=== PATIENT | female | born 1945 | race Caucasian/White ===

== ENCOUNTER 2018-01-02 21:31 | Observation (INO) ==
[~2018-01-02 21:31] MED LIST: Gadobenate Dimeglumine PF Inj 20 ML VIAL (for RAD MRI) IV.PUSH ONE
[2018-01-02] MEDS ORDERED: Sod Chloride 0.9% Inj 1,000 ML IV.CONT SCH (22:15)
[2018-01-02 22:43] LABS: Chloride 102 meq/L (98-107); Potassium 4.7 meq/L (3.5-5.1); Sodium 136 meq/L (136-145)
[2018-01-02 22:46] LABS: Baso % (Auto) 0.6 % (0.0-2.0); Eos # (Auto) 0.3 th/mm3 (0.0-0.4); Hematocrit 31.7 % (35.0-46.0); Lymph # (Auto) 1.5 th/mm3 (1.0-4.8); Lymph % (Auto) 21.4 % (9.0-44.0); Mean Corpuscular HGB Conc 34.6 % (32.0-36.0); Mean Corpuscular Hemoglobin 32.2 pg (27.0-34.0); Mean Corpuscular Volume 93.1 fL (80.0-100.0); Mono # (Auto) 0.5 th/mm3 (0.0-0.9); Mono % (Auto) 7.3 % (0.0-8.0); Neut # (Auto) 4.8 th/mm3 (1.8-7.7); Neut % (Auto) 66.7 % (16.0-70.0); Platelet Count 192 th/mm3 (150-450); Red Blood Count 3.41 mil/mm3 (4.00-5.30); Red Cell Distribution Width 13.3 % (11.6-17.2); White Blood Count 7.1 th/mm3 (4.0-11.0)
[2018-01-02 22:47] LABS: Activated Partial Thrombo Time 23.2 sec (24.3-30.1); Albumin 3.5 g/dL (3.4-5.0); Anion Gap 11 meq/L (5-15); Blood Urea Nitrogen 29 mg/dL (7-18); Calcium 8.4 mg/dL (8.5-10.1); Carbon Dioxide 22.8 meq/L (21.0-32.0); Glucose,Random 185 mg/dL (74-106); Prothrombin Time 10.1 sec (9.8-11.6)
[2018-01-02 22:50] LABS: Alanine Aminotransferase 26 U/L (10-53); Aspartate Aminotransferase 29 U/L (15-37); Glomerular Filtration Rate 32 mL/min (>89)
[2018-01-02 22:52] LABS: Total Protein 6.6 g/dL (6.4-8.2)
[2018-01-02 22:53] LABS: Alkaline Phosphatase 104 U/L (45-117); Creatine Kinase 446 U/L (26-192)
--- NOTE | 2018-01-02 22:58 | ED ---
HPI General Chief Complaint: Neuro Symptoms/Deficit Stated Complaint: KNEE PAIN/WEAKNESS/DOUBLE VISION [id number] Time Seen by Provider: 01/02/18 22:01 Source: patient Mode of arrival: ambulatory Limitations: no limitations History of Present Illness HPI Narrative: The patient is a 72-year-old female who presents to the emergency department for dysarthria and weakness. The patient states she developed bilateral lower extremity weakness several weeks ago in [place], [place] , where she resides. The patient has a history of bilateral knee replacements and states she needed an injection for aching and pain. However, she notes increasing weakness lower extremities. The patient then notes that she has some difficulty getting out of the car yesterday with some right lower extremity weakness and had to have help getting out of the car at the restaurant as well as getting out of the car at the hotel. The patient then developed some dysarthria today at approximately 10 AM while they were at the restaurant. The patient states her speech feels thick, the friends in the room also states that the patient's voice sounds like she has loose dentures, they do note a change in her speech. The patient also complains of some increased weakness to the right leg. The patient also complains of bilateral blurry vision. The patient does have a history of TIA in the past with similar symptoms. The patient does take an aspirin daily and took a full aspirin earlier tonight. The patient denies any chest pain, shortness of breath, nausea , vomiting, or abdominal pain. The patient does take a blood pressure medication to protect her kidneys and does have a history of hyperlipidemia, diabetes, and previous TIA. The patient does take metformin and a long-acting insulin with sliding scale insulin. The patient does not have a local primary physician. The patient's symptoms started this morning at 10 AM. Onset (ago): hour(s) Time: 10:00 Timing confirmed by: other (Friends in the room) Location: speech and right leg History of same: Yes Severity: mild Quality: weak Relieving factors: none Exacerbating factors: none Context: gradual onset On Anticoagulants: Yes Associated symptoms: denies other symptoms Treatments Prior to Arrival: Aspirin Related Data Home Medications Medication Instructions Recorded Confirmed aspirin 81 mg PO DAILY 01/02/18 01/02/18 metformin 1,000 mg PO BID 01/02/18 01/02/18 Allergies Allergy/AdvReac Type Severity Reaction Status Date / Time morphine Allergy Itching, Verified 01/02/18 21:35 Generalized Review of Systems Except as stated in HPI: all other systems reviewed are negative Constitutional Denies fever(s) Eyes Reports blurry vision ENT Denies headache(s) and Denies neck pain Cardiovascular Denies chest pain and Denies pedal edema Respiratory Denies dyspnea Gastrointestinal Denies abdominal pain, Denies nausea and Denies vomiting Genitourinary Denies dysuria Musculoskeletal Reports myalgias and Reports muscle weakness Neurologic Reports abnormal speech, Reports dizziness, Reports frequent falls, Denies numbness, Reports other visual disturbances, Denies paresthesias and Reports weakness [facility] Medical History Medical History Diabetes mellitus (Acute) High cholesterol (Acute) Kidney damage (Acute) TIA (transient ischemic attack) (Acute) Surgical History Surgical History H/O knee surgery (Acute) Previous back surgery (Acute) Social History Social History Substance History: No History of Abuse Smoking Status: Never smoker How Often Do You Have a Drink Containing Alcohol: Monthly or less Recent Travel in [facility] within the Last 8 Weeks: Yes Recent Out of Country Travel within the Last 8 Weeks: No Immunization History Tetanus Immunization: Unsure Hx Influenza Vaccine This Season: Unable to Assess Exam Narrative Exam Narrative: GENERAL: Awake, alert, pleasant 72-year-old female who appears her stated age and is in no acute respiratory distress. SKIN: Focused skin assessment warm/dry. HEAD: Atraumatic. Normocephalic. EYES: Pupils equal and round. 3 mm bilateral and reactive. EOMs are intact. Patient is able to see fingers at a distance of 2 feet without difficulty. ENT: No nasal bleeding or discharge. Mucous membranes pink and moist. NECK: Trachea midline. No JVD. CARDIOVASCULAR: Regular rate and rhythm. No murmur appreciated. RESPIRATORY: No accessory muscle use. Clear to auscultation. Breath sounds equal bilaterally. GASTROINTESTINAL: Abdomen soft, non-tender, nondistended. Small areas of ecchymosis on the abdomen secondary to insulin injections. MUSCULOSKELETAL: No obvious deformities. No clubbing. No cyanosis. No edema. Well-healed scars over the anterior aspect of the knees bilaterally. NEUROLOGICAL: Awake and alert. No obvious cranial nerve deficits. Motor grossly within normal limits. No drift of the upper extremities. Drift to the right lower extremity, falls to the bed less than 5 seconds. No drift of the left lower extremity. Sensation is symmetric on the face, arms, and legs. Finger to nose is normal. Heel to white is normal. Mild dysarthria. Patient is alert and oriented 4. NIHSS 2. PSYCHIATRIC: Appropriate mood and affect; insight and judgment normal. Course Consultations Consultation #1: A call was placed to the on-call medical service for admission. I spoke with Sparkle, the mid-level provider, at 11:45 PM who agrees with 23 hour observation. Time: 23:36 Initial Documented Vital Signs Temperature 97.7 F 01/02/18 21:35 Pulse Rate 84 01/02/18 21:35 Respiratory Rate 18 01/02/18 21:35 Blood Pressure 109/51 L 01/02/18 21:35 Pulse Oximetry 95 01/02/18 21:35 Last Documented Vital Signs Temperature 97.7 F 01/02/18 21:35 Pulse Rate 92 H 01/02/18 22:42 Respiratory Rate 18 01/02/18 22:42 Blood Pressure 99/53 L 01/02/18 22:42 Pulse Oximetry 95 01/02/18 22:42 NIH Stroke Scale NIH Stroke Scale Level of Consciousness: 0-Alert Orientation Questions: 0-Answers both correct Responds to Commands: 0-Both tasks correct Gaze Eye Movement: 0-Horizontal movement WNL Visual [place]: 0-No visual field defect Facial Movement: 0-Normal Motor Functions Arm LEFT: 0-No drift Motor Functions Arm RIGHT: 0-No drift Motor Functions Leg LEFT: 0-No drift Motor Functions Leg RIGHT: 1-Drift before 5 seconds Limb Ataxia: 0-No ataxia Sensory Loss: 0-No sensory loss Best Language: 0-Normal Articulation: 1-Mild dysarthia Extinction or Inattention Sensory: 0-Absent Total: 2 Medical Decision Making MDM Narrative Medical decision making narrative: IV was established, labs are drawn and sent, and the patient was placed on cardiac telemetry monitoring and continuous pulse oximetry monitoring. Stat CT the brain was obtained. The patient's NIHSS score is 2, the patient's symptoms started at 10 AM, the patient would not be a candidate for TPA. The stroke scale is less than 6, I do not believe the patient needs a CTA of the brain/neck. The patient does have a history of similar symptoms in the past secondary to TIA and does have multiple risk factors. CT the brain is negative, the patient was administered aspirin. Chest x-ray is unremarkable. Laboratory evaluation reveals mild renal insufficiency with a creatinine 1.6 a mild hyperglycemia with a glucose of 185. The patient will be admitted to the medical service. Differential Diagnosis Differential Diagnosis: Differential diagnosis includes TIA, CVA, intracranial hemorrhage, hypertensive urgency, hypertensive emergency, hypoglycemia, acute neurologic deficit, UTI, hyponatremia. Lab Data Lab results narrative: Renal insufficiency noted with creatinine 1.6. Glucose slightly elevated at 185. Result diagrams: 01/02/18 22:28 01/02/18 22:28 Lab Results 01/02/18 01/02/18 01/02/18 Range/Units 22:23 22:28 22:28 CBC w Diff WBC (4.0-11.0) th/mm3 RBC (4.00-5.30) mil/mm3 Hgb (11.6-15.3) gm/dL Hct (35.0-46.0) % MCV (80.0-100.0) fL MCH (27.0-34.0) pg MCHC (32.0-36.0) % RDW (11.6-17.2) % Plt Count (150-450) th/mm3 MPV (7.0-11.0) fL Neut % (Auto) (16.0-70.0) % Lymph % (Auto) (9.0-44.0) % [place] % (Auto) (0.0-8.0) % Eos % (Auto) (0.0-4.0) % Baso % (Auto) (0.0-2.0) % Neut # (Auto) (1.8-7.7) th/mm3 Lymph # (Auto) (1.0-4.8) th/mm3 [place] # (Auto) (0.0-0.9) th/mm3 Eos # (Auto) (0.0-0.4) th/mm3 Baso # (Auto) (0.0-0.2) th/mm3 WBC Differential Differential Comment PT 10.1 (9.8-11.6) sec INR 1.0 Ratio APTT 23.2 L (24.3-30.1) sec Sodium 136 (136-145) meq/L Potassium 4.7 (3.5-5.1) meq/L Chloride 102 (98-107) meq/L Carbon Dioxide 22.8 (21.0-32.0) meq/L Anion Gap 11 (5-15) meq/L BUN 29 H (7-18) mg/dL Creatinine 1.60 H (0.50-1.00) mg/dL Estimated GFR 32 L (>89) mL/min POC Glucose 205 H (68-110) mg/dl Random Glucose 185 H (74-106) mg/dL Calcium 8.4 L (8.5-10.1) mg/dL Total Bilirubin 0.2 (0.2-1.0) mg/dL AST 29 (15-37) U/L ALT 26 (10-53) U/L Alkaline Phosphatase 104 (45-117) U/L Total Creatine Kinase 446 H (26-192) U/L CK-MB (CK-2) 2.2 (0.5-3.6) ng/mL CK-MB (CK-2) % 0.5 (0.0-4.0) % Troponin I Less than 0.02 L (0.02-0.05) ng/mL Total Protein 6.6 (6.4-8.2) g/dL Albumin 3.5 (3.4-5.0) g/dL 01/02/18 Range/Units 22:28 CBC w Diff Auto diff final WBC 7.1 (4.0-11.0) th/mm3 RBC 3.41 L (4.00-5.30) mil/mm3 Hgb 11.0 L (11.6-15.3) gm/dL Hct 31.7 L (35.0-46.0) % MCV 93.1 (80.0-100.0) fL MCH 32.2 (27.0-34.0) pg MCHC 34.6 (32.0-36.0) % RDW 13.3 (11.6-17.2) % Plt Count 192 (150-450) th/mm3 MPV 11.0 (7.0-11.0) fL Neut % (Auto) 66.7 (16.0-70.0) % Lymph % (Auto) 21.4 (9.0-44.0) % [place] % (Auto) 7.3 (0.0-8.0) % Eos % (Auto) 4.0 (0.0-4.0) % Baso % (Auto) 0.6 (0.0-2.0) % Neut # (Auto) 4.8 (1.8-7.7) th/mm3 Lymph # (Auto) 1.5 (1.0-4.8) th/mm3 [place] # (Auto) 0.5 (0.0-0.9) th/mm3 Eos # (Auto) 0.3 (0.0-0.4) th/mm3 Baso # (Auto) 0.0 (0.0-0.2) th/mm3 WBC Differential . Differential Comment . PT (9.8-11.6) sec INR Ratio APTT (24.3-30.1) sec Sodium (136-145) meq/L Potassium (3.5-5.1) meq/L Chloride (98-107) meq/L Carbon Dioxide (21.0-32.0) meq/L Anion Gap (5-15) meq/L BUN (7-18) mg/dL Creatinine (0.50-1.00) mg/dL Estimated GFR (>89) mL/min POC Glucose (68-110) mg/dl Random Glucose (74-106) mg/dL Calcium (8.5-10.1) mg/dL Total Bilirubin (0.2-1.0) mg/dL AST (15-37) U/L ALT (10-53) U/L Alkaline Phosphatase (45-117) U/L Total Creatine Kinase (26-192) U/L CK-MB (CK-2) (0.5-3.6) ng/mL CK-MB (CK-2) % (0.0-4.0) % Troponin I (0.02-0.05) ng/mL Total Protein (6.4-8.2) g/dL Albumin (3.4-5.0) g/dL Imaging Data Radiologist's impression: ITS Impressions Chest X-Ray 01/02/18 22:15 CONCLUSION: 1. No acute cardiopulmonary disease. Head CT 01/02/18 22:15 CONCLUSION: 1. No acute intracranial abnormality. ECG Data Attestation: I personally reviewed and interpreted this ECG as follows: Interpretation: EKG reveals normal sinus rhythm with a rate of 91. Wavy baseline in V5. Inverted T-wave in lead III. Discharge Plan Discharge Disposition Patient Disposition: 30 Still Patient Discharge Condition Condition: Stable Discharge Details Discharge Problem: Dysarthria, Cerebrovascular accident (CVA) Physicians Team ED Provider: Sony Iverson Primary Care Provider: UNKNOWN, Rxs /Orders / Referrals /Forms Prescriptions: No Action metformin 1,000 mg Tablet 1,000 mg PO BID RF: 0 aspirin 81 mg Tablet,Chewable 81 mg PO DAILY RF: 0 Status ED Status: Admitted Patient
[2018-01-02 23:05] LABS: CKMB Percent 0.5 % (0.0-4.0); Creatine Kinase MB 2.2 ng/mL (0.5-3.6)
--- NOTE | 2018-01-02 23:19 | CT ---
EXAM DATE: 01/02/2018 11:10 PM EDT AGE/SEX: 72 years / Female INDICATIONS: Transient ischemic attack. Weakness right arm. CLINICAL DATA: This is the patient's initial encounter. Patient reports that signs and symptoms have been present for 1 day and indicates a pain score of 4/10. MEDICAL/SURGICAL HISTORY: Cerebrovascular disease. None. RADIATION DOSE: 52.73 CTDI (mGy) COMPARISON: No prior exams available for comparison. TECHNIQUE: CT of the head without contrast. Using automated exposure control and adjustment of the mA and/or kV according to patient size, radiation dose was kept as low as reasonably achievable to ob tain optimal diagnostic quality images. DICOM format image data is available electronically for revi ew and comparison. FINDINGS: Cerebrum: Mild diffuse cerebral atrophy. The ventricles are normal for age. No evidence of midline s hift, mass lesion, hemorrhage or acute infarction. No extraaxial fluid collections are seen. Posterior Fossa: The cerebellum and brainstem are intact. The 4th ventricle is midline. The cerebe llopontine angle is unremarkable. Extracranial: The visualized portion of the orbits is intact. Skull: The calvaria is intact. No evidence of skull fracture. CONCLUSION: 1. No acute intracranial abnormality. Electronically signed by: Camron Cavanaugh MD 01/02/2018 11:18 PM EDT
--- NOTE | 2018-01-02 23:31 | XR ---
EXAM DATE: 01/02/2018 11:27 PM EDT AGE/SEX: 72 years / Female INDICATIONS: Stroke alert. CLINICAL DATA: This is the patient's initial encounter. Patient reports that signs and symptoms have been present for 1 day and indicates a pain score of 0/10. MEDICAL/SURGICAL HISTORY: None. None. COMPARISON: No prior exams available for comparison. FINDINGS: Minimal biapical scarring more prominently on the right. No significant focal pleural or parenchymal opacities. The cardiomediastinal contours are unremarkable. Osseous structures are intact. CONCLUSION: 1. No acute cardiopulmonary disease. Electronically signed by: Camron Cavanaugh MD 01/02/2018 11:30 PM EDT
[2018-01-03 01:24] LABS: Bilirubin,Urine Negative (Negative); Clarity,Urine Clear (Clear); Color,Urine Yellow (Yellw/Straw); Glucose,Urine (UA) Negative (Negative); Leukocyte Esterase,Urine Trace (Negative); Nitrite,Urine Positive (Negative); PH,Urine 5.5 (5.0-8.5); Specific Gravity,Urine 1.015 (1.002-1.035); Urobilinogen,Urine 0.2 mg/dL (Less than 2)
[2018-01-03 01:29] LABS: Bacteria,Urine Many /hpf; RBC,Urine 0-3 /hpf (0-3); Squamous Epithelial Cell,Urine 0-5 /hpf (0-5)
[2018-01-03] MEDS ORDERED: Dextrose 50% in Water 50 ML Vial IV.PUSH PRN ×2 (02:22→02:32)
[2018-01-03] MEDS: Sod Chloride 0.9% Inj 1,000 ML IV.CONT SCH ×2 (04:16→10:42)
--- NOTE | 2018-01-03 08:39 | P.HPIM ---
History of Present Illness Primary Care Physician: UNKNOWN Chief Complaint: leg weakness History of Present Illness: patient is a 72 y/o female with history of hypertension, diabetes, TIA, newly- diagnosed breast cancer, who presented to ER with weakness of both legs. she says that this has been going on for three days but it seems that it's been getting worse.she says that yesterday when she was trying to get out of the car she couldn't and had to get some help. she reports slurred speech and double vision for the past couple of days. - Diagnosis (1) TIA (transient ischemic attack) (2) UTI (urinary tract infection) (3) Diabetes mellitus (4) Renal insufficiency Inpatient Certification: I certify that the inpatient services were ordered in accordance with Medicare regulations governing the order. This includes certification that hospital inpatient services are reasonable and necessary and in the case of services not specified as inpatient-only under 42 CFR 419.22(n), that they are appropriately provided as inpatient services in accordance to with the 2-midnight benchmark under 43 CFR 412.3(e) Review of Systems All other systems reviewed negative except as stated in HPI PMFSH - History History Provided By: Patient - Medical History Medical History: Medical History (Last Reviewed 01/03/18 @ 08:26 by Tremayne Forte) Diabetes mellitus High cholesterol Kidney damage TIA (transient ischemic attack) - Surgical History Surgical History: Surgical History (Last Reviewed 01/03/18 @ 08:26 by Tremayne Forte) H/O knee surgery Previous back surgery - Tobacco History Second Hand Smoke Exposure: Yes Tobacco Use In Past 30 Days: No Smoking Status: Never smoker - Alcohol History How Often Do You Have a Drink Containing Alcohol: Monthly or less - Substance Use History Substance History: No History of Abuse - Travel History Recent Travel in the [place] Within the Last 8 Weeks: Yes Recent Travel Out of the Country Within the Last 8 Weeks: No - Immunization History Tetanus Immunization: Unsure Hx Influenza Vaccine This Season: Unable to Assess Medications and Allergies Active Medications: Active Medications Aspirin (Aspirin) 325 mg PO DAILY JESSICA Dextrose (D50w Vial) 50 ml IV.PUSH UNSCH PRN PRN Reason: PER HYPOGLYCEMIA PROTOCOL Dextrose (D50w Vial) 50 ml IV.PUSH UNSCH PRN PRN Reason: PER HYPOGLYCEMIA PROTOCOL Glucagon (Glucagon Inj) 1 mg OTHER UNSCH PRN PRN Reason: for Hypoglycemia Protocol Ceftriaxone Sodium 1,000 mg/ (Sodium Chloride) 100 mls @ 200 mls/hr IV.SIG Q24H [facility] Last Admin: 01/03/18 04:30 Dose: 200 mls/hr Sodium Chloride (Ns Inj) 1,000 mls @ 70 mls/hr IV.CONT .[id number] [facility] Last Admin: 01/03/18 04:16 Dose: Not Given Insulin Aspart (Novolog Insulin Suppl Scale Inj) 0 unit SQ ACHS JESSICA; Protocol Sodium Chloride (Ns Flush) 2 ml IV.FLUSH BID JESSICA Sodium Chloride (Ns Flush) 2 ml IV.FLUSH PRN PRN PRN Reason: FLUSH AFTER USING IV ACCESS Allergies Allergy/AdvReac Type Severity Reaction Status Date / Time morphine Allergy Itching, Verified 01/02/18 21:35 Generalized Home Medications Medication Instructions Recorded Confirmed Type aspirin 81 mg PO DAILY 01/02/18 01/02/18 History metformin 1,000 mg PO BID 01/02/18 01/02/18 History Exam Vital signs: Vital Signs 01/02/18 21:35 01/02/18 22:31 01/02/18 22:42 Temperature 97.7 F Pulse Rate 84 92 H 92 H Respiratory Rate 18 18 Blood Pressure 109/51 L 99/53 L Pulse Oximetry 95 95 95 01/02/18 23:45 01/03/18 01:10 01/03/18 03:00 Temperature Pulse Rate 75 76 71 Respiratory Rate 16 16 16 Blood Pressure 103/60 116/59 L 112/60 Pulse Oximetry 96 01/03/18 07:03 Temperature 98.2 F Pulse Rate 72 Respiratory Rate 16 Blood Pressure 100/55 L Pulse Oximetry 94 L Intake & Output 01/02/18 01/03/18 01/03/18 18:59 06:59 18:59 Weight 94 kg - Constitutional no acute distress - Routine HEENT Exam Head: Present: normocephalic, atraumatic Eye: Present: PERRL - Routine Neck Exam Present: supple, full ROM - Routine Respiratory Exam Present: CTA bilaterally - Routine Cardiovascular Exam Present: RRR - Routine Abdominal Exam Present: soft - Routine Extremities Exam Comments: no pedal edema. - Routine Neurological Exam Present: alert, oriented X3 Results - Labs CBC & Chem 7: 01/02/18 22:28 01/02/18 22:28 Labs: Short CBC 01/02/18 Range/Units 22:28 WBC 7.1 (4.0-11.0) th/mm3 Hgb 11.0 L (11.6-15.3) gm/dL Hct 31.7 L (35.0-46.0) % Plt Count 192 (150-450) th/mm3 BMP 01/02/18 22:28 Sodium 136 Potassium 4.7 Chloride 102 Carbon Dioxide 22.8 BUN 29 H Creatinine 1.60 H Calcium 8.4 L Cardiac Enzymes 01/02/18 Range/Units 22:28 Total Creatine Kinase 446 H (26-192) U/L CK-MB (CK-2) 2.2 (0.5-3.6) ng/mL Troponin I Less than 0.02 L (0.02-0.05) ng/mL Liver Function 01/02/18 Range/Units 22:28 Total Bilirubin 0.2 (0.2-1.0) mg/dL AST 29 (15-37) U/L ALT 26 (10-53) U/L Alkaline Phosphatase 104 (45-117) U/L Albumin 3.5 (3.4-5.0) g/dL Urine 01/02/18 Range/Units 22:15 Urine Color Yellow (Yellw/Straw) Urine Clarity Clear (Clear) Urine pH 5.5 (5.0-8.5) Ur Specific [place] 1.015 (1.002-1.035) Urine Protein Negative (Neg-Trace) mg/dL Urine Glucose (UA) Negative (Negative) mg/dL - Imaging Impressions Chest X-Ray 01/02/18 22:15 CONCLUSION: 1. No acute cardiopulmonary disease. Head CT 01/02/18 22:15 CONCLUSION: 1. No acute intracranial abnormality. Caprini VTE Risk Assessment Caprini VTE Risk Assessment: Moderate/High Risk (score >= 2) Caprini Risk Assessment Model: Point Value = 1 Point Value = 2 Point Value = 3 Point Value = 5 Age 41-60 Minor surgery BMI > 25 kg/m2 Swollen legs Varicose veins or History of unexplained or recurrent spontaneous Oral contraceptives or hormone replacement Sepsis (< 1 month) Serious lung disease, including pneumonia (< 1 month) Abnormal pulmonary function Acute myocardial infarction Congestive heart failure (< 1 month) History of inflammatory bowel disease Medical patient at bed rest Age 61-74 Arthroscopic surgery Major open surgery (> 45 min) Laparoscopic surgery (> 45 min) Malignancy Confined to bed (> 72 hours) Immobilizing plaster cast Central venous access Age >= 75 History of VTE Family history of VTE Factor V Leiden Prothrombin [id number] Lupus anticoagulant Anticardiolipin antibodies Elevated serum homocysteine Heparin-induced thrombocytopenia Other congenital or acquired thrombophilia Stroke (< 1 month) Elective arthroplasty Hip, pelvis, or leg fracture Acute spinal cord injury (< 1 month) Prophylaxis Regimen: Total Risk Factor Score Risk Level Prophylaxis Regimen 0-1 Low Early ambulation 2 Moderate Order ONE of the following: *Sequential Compression Device (SCD) *Heparin 5000 units SQ BID 3-4 Higher Order ONE of the following medications: *Heparin 5000 units SQ TID *Enoxaparin/Lovenox 40 mg SQ daily (WT < 150 kg, CrCl > 30 mL/min) *Enoxaparin/Lovenox 30 mg SQ daily (WT < 150 kg, CrCl > 10-29 mL/min) *Enoxaparin/Lovenox 30 mg SQ BID (WT < 150 kg, CrCl > 30 mL/min) AND/OR *Sequential Compression Device (SCD) 5 or more Highest Order ONE of the following medications: *Heparin 5000 units SQ TID (Preferred with Epidurals) *Enoxaparin/Lovenox 40 mg SQ daily (WT < 150 kg, CrCl > 30 mL/min) *Enoxaparin/Lovenox 30 mg SQ daily (WT < 150 kg, CrCl > 10-29 mL/min) *Enoxaparin/Lovenox 30 mg SQ BID (WT < 150 kg, CrCl > 30 mL/min) AND *Sequential Compression Device (SCD) Assessment and Plan - Assessment (1) TIA (transient ischemic attack) Code(s): G45.9 - Transient cerebral ischemic attack, unspecified Status: Acute Plan: TIA vs CVA- continue aspirin- PT/ST and neurology consult. MRI/MRA brain and carotid doppler pending- will check echo and lipid panel. (2) UTI (urinary tract infection) Code(s): N39.0 - Urinary tract infection, site not specified Status: Acute Plan: continue IV Rocephin- will follow the UC. (3) Diabetes mellitus Code(s): E11.9 - Type 2 diabetes mellitus without complications Status: Chronic Plan: continue accu-check with SSI- A1c pending. (4) Renal insufficiency Code(s): N28.9 - Disorder of kidney and ureter, unspecified Status: Acute Plan: with unknown duration- continue with IV fluid and monitor the renal function. - Plan DVT prophylaxis with subq Lovenox. Discussed Condition With: the patient. Discharge Planning: when w/u is completed- awaiting neurology evaluation. H&P: Quality - VTE Deep Vein Thrombosis/Pulmonary Embolism Present on Admission: No (3) Diabetes mellitus Qualifiers: Diabetes mellitus type: type 2
[2018-01-03] MEDS: Aspirin 325 MG Tablet PO SCH (08:59)
[2018-01-03] MEDS: Insulin NovoLOG Aspart Correctional Sugar Inj SQ SCH ×4 (08:59→21:49)
[2018-01-03] MEDS: Enoxaparin Inj 30 MG/0.3 ML Syringe SQ SCH (08:59)
--- NOTE | 2018-01-03 10:04 | US ---
EXAM DATE: 01/03/2018 8:58 AM EDT AGE/SEX: 72 years / Female INDICATIONS: Weakness. Blurred vision. Speech changes. History of TIA. CLINICAL DATA: This is the patient's initial encounter. Patient reports that signs and symptoms have been present for 1 day and indicates a pain score of 0/10. MEDICAL/SURGICAL HISTORY: Transient ischemic attack. Diabetes. Kidney damage. Hyperlipidemia. . Bilateral knee replacements. Back surgery. COMPARISON: No prior exams available for comparison. VELOCITY PARAMETERS: ICA/CCA Ratio: Right 1.2 , Left 1.3 ICA: Right 106 cm/sec, Left 83 cm/sec CCA: Right 89 cm/sec, Left 65 cm/sec ECA: Right 122 cm/sec, Left 89 cm/sec Vertebral: Right 62 cm/sec antegrade, Left 29 cm/sec antegrade FINDINGS: Right Carotid: Very minimal plaquing in the carotid bulb.The waveforms are within normal limits. Left Carotid: Very minimal plaquing in the carotid bulb. The waveforms are within normal limits. Other: None. CONCLUSION: 1. Right Internal Carotid Artery: Minimal plaquing in the carotid bulb with no sonographic or Dopple r findings of a hemodynamically significant stenosis. 2. Left Internal Carotid Artery: Minimal plaquing in the carotid bulb with no sonographic or Doppler findings of a hemodynamically significant stenosis. 3. Antegrade flow in both vertebral arteries. Electronically signed by: Mitch Ring MD 01/03/2018 10:02 AM EDT
--- NOTE | 2018-01-03 14:57 | MB ---
cc: Adelso Funk MD DATE: 01/03/2018 HISTORY OF PRESENT ILLNESS: A 72-year-old right-handed woman with insulin-dependent diabetes, hypercholesterolemia, some renal insufficiency, new diagnosis of breast cancer. She does take a baby aspirin a day. About 7 years ago, she said that she had some balance problems, some dizziness that seemed to go away and then a year later it recurred. About a month ago, she sat up quickly at the side of her bed in the morning and had some spinning, but it was brief. If she turns over in bed, she does not get particularly dizzy, but if she leans over and then stands up, she does. She was in a restaurant yesterday and it seemed like her right arm could not get the fork up to her mouth and she had some slurred speech and double vision and came into the ER. The ER notes shows that she lives in [place], [place], had some bilateral lower extremity weakness for several weeks. Bilateral knee replacements, some injections for pain especially the right thigh has been hurting her. They noted some dysarthria at 10 a.m., on leaving the restaurant. Speech was a little thick. Increased pain in the right leg, although has had weakness, denied any increased weakness there. Really her exam was normal to near-normal in the ER, and her was 2 at that time. REVIEW OF SYSTEMS: Denies any hypertension, VA, stent, angioplasty, AFib, Coumadin, CABG, hepatic, pulmonary disease, thyroid disease, lupus, ulcer, known seizure. SOCIAL HISTORY: She is not a smoker or drinker, lives by herself. FAMILY HISTORY: Negative for cancer, seizure or stroke. HOME MEDICATIONS: Aspirin 81 mg a day and metformin. PHYSICAL EXAMINATION: VITAL SIGNS: Afebrile, 127/58, 17, 72. NECK: There were no carotid or vertebral bruits. HEART: Regular rhythm. I did not detect a murmur. NEUROLOGIC: Pupils are equal. Visual bowen are full. Extraocular movements intact without nystagmus. Face is symmetric with normal sensation. Tongue was midline. There is no drift. She had normal strength in upper and lower extremities bilaterally. DTRs absent throughout. Toes are downgoing bilaterally. Light touch was intact throughout. She has no ataxic on [id number]. No double vision now. LABORATORY DATA: UA showed 5-8 white cells, occasional clumps. Culture pending. Basic metabolic profile: Creatinine 1.6, GFR is 32, otherwise normal. LFTs are normal. CPK is 446. Troponin was negative. Albumin is normal. Glucose was 205. Coags normal. CBC normal. EKG showed sinus rhythm. IMAGING STUDIES: Labs carotid ultrasound was negative. CAT scan normal. 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 No acute infarct is noted. Mastoids look good. MRA lime of Ortega is pending. Official reading of the MRI is pending. IMPRESSION AND RECOMMENDATIONS: I thought she looked well neurologically. Her gait is actually fairly steady and she can stand on her toes well. She might have a peripheral vestibulopathy from her recent symptoms of dizziness. Certainly if her right arm was weak I would be concerned about that, however, and I would switch her to Plavix. We will check an MRA of the neck, some additional blood work and I will be following her with you in the hospital. We will also check an echo, give her some hydration. I will be following her with you in the hospital. She should also get a Holter monitor done. If her echo is negative and the Holter has been performed and her MRA of the neck and lime of Ortega look okay, she could be discharged tomorrow. We should check an LDL on her also and the results of the urine culture. This may have been a TIA in addition to some baseline peripheral vestibulopathy. We will have PT ambulate her. We will also check an MRI of the brain with contrast with the recent history of cancer. We will also have PT work with her and check some standing blood pressures MD GENARO Person/KVNG , 02:21 PM , 02:56 PM
[2018-01-03] MEDS ORDERED: Gadobenate Dimeglumine PF Inj 20 ML VIAL (for RAD MRI) IV.PUSH ONE (16:00)
--- NOTE | 2018-01-03 16:37 | MR ---
EXAM DATE: 01/03/2018 4:19 PM EDT AGE/SEX: 72 years / Female INDICATIONS: Stroke. CLINICAL DATA: This is the patient's initial encounter. Patient reports that signs and symptoms have been present for 1 day and indicates a pain score of 2/10. MEDICAL/SURGICAL HISTORY: Diabetes mellitus type II. Renal insufficiency, chronic. Diagnosed w ith breast ca last week. Fusion, lumbar. Total knee replacement, left. Total knee replacement, rig ht. COMPARISON: No prior exams available for comparison. TECHNIQUE: 20 ml Multihance (gadobenate) contrast infused MRA (single exam dose) of the extracrania l circulation was performed using a neurovascular coil. Postprocessing was performed, including rota ting sub-volume maximum intensity projections of each carotid artery, rotating full-volume maximum in tensity projections of both carotid arteries, sagittal and coronal sliding thin-slab reformations of each carotid artery, and left oblique sliding thin-slab reformation through the aortic arch to includ e the origin of the arch branch vessels. FINDINGS: No abnormality is identified within the lung apices. There is normal origin of vessels from the arch without evidence of proximal stenosis. The right vertebral artery is dominant. Examination of the right common carotid artery demonstrates the vessel to be widely patent. There is 0-10% stenosis at the origin of the internal carotid artery. More distally the cervical internal haywood tid artery is intact. Examination of the left common carotid artery demonstrates the vessel to be widely patent. Findings M ore distally the cervical internal carotid artery is intact. CONCLUSION: 1. Negative MR angiography of the carotid arteries Percent stenosis is calculated using the diameter of the stenotic region over the diameter of the nor mal distal internal carotid artery Electronically signed by: Adelso Weinberg MD 01/03/2018 4:36 PM EDT
--- NOTE | 2018-01-03 16:40 | ECG ---
Date Performed: 01/02/2018 Time Performed: 22:26:16 PTAGE: 72 years EKG: Sinus rhythm MINIMAL VOLTAGE CRITERIA FOR LVH, CONSIDER NORMAL VARIANT BORDERLINE ECG NO PREVIOUS TRACING DOCTOR: Deb Castillo Interpretating Date/Time 01/03/2018 16:38:11
[2018-01-03] MEDS: Sod Chloride 0.9% Inj 1,000 ML IV.SIG SCH (17:04)
--- NOTE | 2018-01-03 17:09 | MR ---
EXAM DATE: 01/03/2018 4:50 PM EDT AGE/SEX: 72 years / Female INDICATIONS: CVA. Weakness. CLINICAL DATA: This is the patient's initial encounter. Patient reports that signs and symptoms have been present for 2 days and indicates a pain score of 0/10. MEDICAL/SURGICAL HISTORY: Diabetes mellitus type II. Diagnosed with breast ca last week. Fusio n, lumbar. Total knee replacement, right. Total knee replacement, left. COMPARISON: HPO, MR HEAD W & W/O CONTRAST, 01/03/2018. . TECHNIQUE: 3D [id number] MRA was performed. Source images, multiplanar STS MIP, and 3D volum e MIP reconstructions were reviewed. FINDINGS: There is excellent visualization of the major intracranial arteries out to the second-order branch ve ssels. There is no evidence for aneurysm, vessel truncation or stenosis, and no evidence for vascula r malformation. Patient is right vertebral dominant. Both vertebrals are patent. Dominant supply to the left posterio r cerebral artery is via the widely patent posterior communicating artery. CONCLUSION: 1. Patient is right vertebral dominant. 2. Intracranial vessels are all patent without aneurysmal disease. Electronically signed by: Mitch Ring MD 01/03/2018 5:08 PM EDT
[2018-01-03 18:42] LABS: Thyroid Stimulating Hormone 1.44 uIU/mL (0.358-3.740)
--- NOTE | 2018-01-03 19:53 | MR ---
EXAM DATE: 01/03/2018 3:38 PM EDT AGE/SEX: 72 years / Female INDICATIONS: CVA. Weakness. CLINICAL DATA: This is the patient's initial encounter. Patient reports that signs and symptoms have been present for 2 days and indicates a pain score of 0/10. MEDICAL/SURGICAL HISTORY: Diabetes mellitus type II. Renal insufficiency, chronic. Diagnosed w ith breast ca this week. Fusion, lumbar. Total knee replacement, right. Total knee replacement, le ft. COMPARISON: HPO, MRA HEAD W/O CONTRAST, 01/03/2018. . TECHNIQUE: Multiplanar, multisequence examination of the brain was performed without and with 20 ml M ultihance (gadobenate) contrast as a single exam dose. FINDINGS: Cerebrum: The ventricles are normal for age. No evidence of midline shift, mass lesion, hemorrhage or acute infarction. No extraaxial fluid collections are seen. The pituitary gland and suprasellar cistern are normal in configuration. White Matter: A few scattered foci of chronic FLAIR signal abnormality seen in the periventricular w luisa matter of both cerebral hemispheres. No associated restricted diffusion or abnormal enhancement. Posterior Fossa: The cerebellum and brainstem are intact. The 4th ventricle is midline. The cerebel lopontine angle is unremarkable. The cerebellar tonsils are normal in position. Diffusion Imaging: No focal areas of restricted diffusion are seen. No evidence of acute infarction . Extracranial: The visualized portions of the orbits and paranasal sinuses are unremarkable. Post Contrast: No abnormal areas of parenchymal or dural enhancement. No evidence of blood-brain ba rrier breakdown. CONCLUSION: 1. No evidence of metastatic disease or other acute intracranial abnormality. 2. Mild chronic white matter changes. Electronically signed by: Souleymane Bob MD 01/03/2018 7:52 PM EDT
--- NOTE | 2018-01-03 21:06 | ECHRPT ---
Indication: CVA/TIA CONCLUSIONS Normal left ventricular size. Wall thickness is normal. The left ventricular systolic function is low normal with an estimated ejection fraction in the rang e of 50- 55%. Mitral annular calcification is present. Trace mitral valve regurgitation. There is mild tricuspid valve regurgitation. The estimated pulmonary arterial pressure is 38mmHg. There is a trivil pericardial effusion present. BP: / HR: Rhythm: Technical Quality: FINDINGS LEFT VENTRICLE Normal left ventricular size. Wall thickness is normal. The left ventricular systolic function is low normal with an estimated ejection fraction in the rang e of 50- 55%. RIGHT VENTRICLE Normal right ventricular size and systolic function. LEFT ATRIUM The left atrial size is normal. RIGHT ATRIUM The right atrial size is normal. ATRIAL SEPTUM Normal atrial septal thickness without atrial level shunting by limited color doppler interrogation. AORTA The aortic root and proximal ascending aorta are normal in size on limited imaging. MITRAL VALVE Mitral annular calcification is present. Trace mitral valve regurgitation. AORTIC VALVE Trileaflet aortic valve. No aortic valve stenosis or regurgitation. TRICUSPID VALVE There is mild tricuspid valve regurgitation. The estimated pulmonary arterial pressure is 38mmHg. PULMONARY VALVE The pulmonary valve is not well visualized. VESSELS The inferior vena cava is normal in size. PERICARDIUM There is a trivil pericardial effusion present. Nino Kelley MD (Electronically Signed) Final Date:03 January 2018 21:05
[2018-01-03 22:17] LABS: T4 (Thyroxine) 8.4 mcg/dL (4.8-13.9)
[2018-01-03 22:42] LABS: Chol/HDL Ratio 2.47 Ratio; HDL Cholesterol 54.6 mg/dL (40.0-60.0)
[2018-01-04] MEDS: Sod Chloride 0.9% Inj 1,000 ML IV.SIG SCH (06:23)
[2018-01-04 07:04] LABS: Potassium 3.8 meq/L (3.5-5.1)
[2018-01-04 07:21] LABS: Calcium 8.2 mg/dL (8.5-10.1); Carbon Dioxide 27.1 meq/L (21.0-32.0)
--- NOTE | 2018-01-04 07:55 | P.PNNEU ---
Subjective Subjective Comments: No acute events reported i dw nurse sr Active Medications: Active Medications Aspirin (Aspirin) 325 mg PO DAILY [facility] Last Admin: 01/03/18 08:59 Dose: 325 mg Clopidogrel Bisulfate (Plavix) 75 mg PO DAILY [facility] Last Admin: 01/03/18 15:41 Dose: 75 mg Dextrose (D50w Vial) 50 ml IV.PUSH UNSCH PRN PRN Reason: PER HYPOGLYCEMIA PROTOCOL Dextrose (D50w Vial) 50 ml IV.PUSH UNSCH PRN PRN Reason: PER HYPOGLYCEMIA PROTOCOL Enoxaparin Sodium (Lovenox Inj) 30 mg SQ DAILY [facility] Last Admin: 01/03/18 08:59 Dose: 30 mg Glucagon (Glucagon Inj) 1 mg OTHER UNSCH PRN PRN Reason: for Hypoglycemia Protocol Ceftriaxone Sodium 1,000 mg/ (Sodium Chloride) 100 mls @ 200 mls/hr IV.SIG Q24H [facility] Last Infusion: 01/04/18 03:18 Dose: Infused Sodium Chloride (Ns Inj) 1,000 mls @ 70 mls/hr IV.SIG .[id number] [facility] Last Admin: 01/04/18 06:23 Dose: 70 mls/hr Insulin Aspart (Novolog Insulin Suppl Scale Inj) 0 unit SQ ACHS [facility]; Protocol Last Admin: 01/03/18 21:49 Dose: 3 unit Sodium Chloride (Ns Flush) 2 ml IV.FLUSH BID [facility] Last Admin: 01/03/18 21:20 Dose: Not Given Sodium Chloride (Ns Flush) 2 ml IV.FLUSH PRN PRN PRN Reason: FLUSH AFTER USING IV ACCESS Allergies/Adverse Reactions: Allergies Allergy/AdvReac Type Severity Reaction Status Date / Time morphine Allergy Itching, Verified 01/02/18 21:35 Generalized Physical Exam Vital signs: Vital Signs 01/03/18 08:00 01/03/18 08:36 01/03/18 09:00 Temperature 98.7 F Pulse Rate 74 73 Respiratory Rate 17 Blood Pressure 127/64 Pulse Oximetry 96 97 01/03/18 12:00 01/03/18 12:36 01/03/18 16:00 Temperature 97.0 F L 97.0 F L 97.8 F Pulse Rate 72 72 70 Respiratory Rate 17 17 16 Blood Pressure 127/58 L 127/58 L 133/68 Pulse Oximetry 98 98 98 01/03/18 20:00 01/03/18 20:36 01/03/18 20:39 Temperature 97 F L Pulse Rate 79 78 Respiratory Rate 20 Blood Pressure 156/85 H Pulse Oximetry 97 93 L 01/04/18 00:00 01/04/18 04:00 Temperature 96.9 F L 97.1 F L Pulse Rate 76 74 Respiratory Rate 20 18 Blood Pressure 165/94 H 123/78 Pulse Oximetry 99 95 Intake & Output 01/03/18 01/04/18 01/04/18 18:59 06:59 18:59 Intake Total 1260 / 1260 580 / 580 Balance 1260 / 1260 580 / 580 Weight 87.8 kg Intake: IV 900 / 900 100 / 100 NS Inj 1,000 ML @ 70 mls/hr IV. 800 / 800 CONT .[id number] JESSICA Rx#: [id number] Rocephin Inj 1,000 MG In NS Inj 100 / 100 100 / 100 100 ML @ 200 mls/hr IV.SIG Q24H JESSICA Rx#:[id number] Oral 360 / 360 480 / 480 Other: # Voids 4 2 # Bowel Movements 0 Objective Laboratory Results - last 24 hr 01/03/18 01/03/18 01/03/18 07:53 11:17 17:35 ESR Sodium Potassium Chloride Carbon Dioxide Anion Gap BUN Creatinine Estimated GFR POC Glucose 173 H 146 H Random Glucose Calcium Triglycerides 143 Cholesterol 135 LDL Cholesterol Direct 68 LDL Cholesterol, Calc 52 HDL Cholesterol 54.6 Cholesterol/HDL Ratio 2.47 Vitamin B12 1360 H TSH 1.440 Thyroxine (T4) 8.4 01/03/18 01/03/18 01/04/18 17:50 21:18 05:20 ESR 23 Sodium 142 Potassium 3.8 D Chloride 107 Carbon Dioxide 27.1 Anion Gap 8 BUN 17 Creatinine 0.85 Estimated GFR 66 L POC Glucose 244 H Random Glucose 121 H Calcium 8.2 L Triglycerides Cholesterol LDL Cholesterol Direct LDL Cholesterol, Calc HDL Cholesterol Cholesterol/HDL Ratio Vitamin B12 TSH Thyroxine (T4) 01/04/18 07:32 ESR Sodium Potassium Chloride Carbon Dioxide Anion Gap BUN Creatinine Estimated GFR POC Glucose 157 H Random Glucose Calcium Triglycerides Cholesterol LDL Cholesterol Direct LDL Cholesterol, Calc HDL Cholesterol Cholesterol/HDL Ratio Vitamin B12 TSH Thyroxine (T4) Review/Management - Review/Management Plan: impmri/a/a ok her r vert dom but left is patent echo neg uti rxed ldl nl if holter done she could dc on plavix she could fu my office if in town for periph vestibulopathy no cva here may have been tia she should fu with a neurologist o/w up in [place].
[2018-01-04] MEDS: Enoxaparin Inj 30 MG/0.3 ML Syringe SQ SCH (08:04)
[2018-01-04] MEDS: Aspirin 325 MG Tablet PO SCH (08:04)
[2018-01-04] MEDS: Insulin NovoLOG Aspart Correctional Sugar Inj SQ SCH (08:07)
--- NOTE | 2018-01-04 09:10 | P.PN ---
Subjective Interval history: in no acute distress.no new complaints. d/w the RN and no acute issues over night.wants to go home. Physical Exam Vital signs: Vital Signs 01/03/18 12:00 01/03/18 12:36 01/03/18 16:00 Temperature 97.0 F L 97.0 F L 97.8 F Pulse Rate 72 72 70 Respiratory Rate 17 17 16 Blood Pressure 127/58 L 127/58 L 133/68 Pulse Oximetry 98 98 98 01/03/18 20:00 01/03/18 20:36 01/03/18 20:39 Temperature 97 F L Pulse Rate 79 78 Respiratory Rate 20 Blood Pressure 156/85 H Pulse Oximetry 97 93 L 01/04/18 00:00 01/04/18 04:00 Temperature 96.9 F L 97.1 F L Pulse Rate 76 74 Respiratory Rate 20 18 Blood Pressure 165/94 H 123/78 Pulse Oximetry 99 95 Intake & Output 01/03/18 01/04/18 01/04/18 18:59 06:59 18:59 Intake Total 1260 / 1260 580 / 580 Balance 1260 / 1260 580 / 580 Weight 87.8 kg Intake: IV 900 / 900 100 / 100 NS Inj 1,000 ML @ 70 mls/hr IV. 800 / 800 CONT .[id number] JESSICA Rx#: [id number] Rocephin Inj 1,000 MG In NS Inj 100 / 100 100 / 100 100 ML @ 200 mls/hr IV.SIG Q24H JESSICA Rx#:[id number] Oral 360 / 360 480 / 480 Other: # Voids 4 2 # Bowel Movements 0 - Constitutional no acute distress - Routine Neck Exam Present: supple, full ROM - Routine Respiratory Exam Present: CTA bilaterally - Routine Cardiovascular Exam Present: RRR - Routine Abdominal Exam Present: soft - Routine Extremities Exam Comments: no pedal edema. - Routine Neurological Exam Present: alert, oriented X3 Results - Labs CBC & Chem 7: 01/02/18 22:28 01/04/18 05:20 Laboratory Results - last 24 hr 01/03/18 01/03/18 01/03/18 11:17 17:35 17:50 ESR 23 Sodium Potassium Chloride Carbon Dioxide Anion Gap BUN Creatinine Estimated GFR POC Glucose 146 H Random Glucose Calcium Triglycerides 143 Cholesterol 135 LDL Cholesterol Direct 68 LDL Cholesterol, Calc 52 HDL Cholesterol 54.6 Cholesterol/HDL Ratio 2.47 Vitamin B12 1360 H TSH 1.440 Thyroxine (T4) 8.4 01/03/18 01/04/18 01/04/18 21:18 05:20 07:32 ESR Sodium 142 Potassium 3.8 D Chloride 107 Carbon Dioxide 27.1 Anion Gap 8 BUN 17 Creatinine 0.85 Estimated GFR 66 L POC Glucose 244 H 157 H Random Glucose 121 H Calcium 8.2 L Triglycerides Cholesterol LDL Cholesterol Direct LDL Cholesterol, Calc HDL Cholesterol Cholesterol/HDL Ratio Vitamin B12 TSH Thyroxine (T4) - Imaging Impressions Carotid Doppler Study 01/03/18 00:00 CONCLUSION: 1. Right Internal Carotid Artery: Minimal plaquing in the carotid bulb with no sonographic or Doppler findings of a hemodynamically significant stenosis. 2. Left Internal Carotid Artery: Minimal plaquing in the carotid bulb with no sonographic or Doppler findings of a hemodynamically significant stenosis. 3. Antegrade flow in both vertebral arteries. Neck MRA 01/03/18 00:00 CONCLUSION: 1. Negative MR angiography of the carotid arteries Percent stenosis is calculated using the diameter of the stenotic region over the diameter of the normal distal internal carotid artery Head MRI 01/03/18 02:27 CONCLUSION: 1. No evidence of metastatic disease or other acute intracranial abnormality. 2. Mild chronic white matter changes. Head MRA 01/03/18 02:27 CONCLUSION: 1. Patient is right vertebral dominant. 2. Intracranial vessels are all patent without aneurysmal disease. Assessment and Plan - Assessment (1) TIA (transient ischemic attack) Code(s): G45.9 - Transient cerebral ischemic attack, unspecified Status: Acute Plan: TIA vs CVA- continue aspirin- w/u negative so far- holter to be followed up. seen by PT/ST- neurology f/u appreciated; f/u as outpatient. (2) UTI (urinary tract infection) Code(s): N39.0 - Urinary tract infection, site not specified Status: Acute Plan: will switch to po- UC to be followed up. (3) Diabetes mellitus Code(s): E11.9 - Type 2 diabetes mellitus without complications Status: Chronic Plan: continue accu-check with SSI- A1c pending. (4) Renal insufficiency Code(s): N28.9 - Disorder of kidney and ureter, unspecified Status: Acute Plan: ABDIAS-resolved after IV fluid. - Plan DVT prophylaxis with subq Lovenox. Discharge Planning: d/c home today with f/u by pcp and neurology. holter and UC to be followed up. see med list. d/w the patient and RN. (3) Diabetes mellitus Qualifiers: Diabetes mellitus type: type 2
[2018-01-04 10:59] LABS: Chol/HDL Ratio 2.74 Ratio; HDL Cholesterol 41.9 mg/dL (40.0-60.0)
[2018-01-04 16:29] LABS: Hemoglobin A1c 11.3 % (4.3-6.0)
--- NOTE | 2018-01-05 14:10 | HM ---
Date Performed: 01/03/2018 Time Performed: 18:03:00 HOOKUP DATE: 01/03/18 06:03:00 PM Tue ANALYSIS START TIME: 01/03/2018 6:08:00 PM ANALYSIS END TIME: 01/04/2018 6:02:55 PM PATIENT AGE: 72 PATIENT HEIGHT: 64 PATIENT WEIGHT: 207 DRUG LIST: CVA PATIENT DIAGNOSIS: ROOM 8302 TEST NARRATIVE: The patient's average heart rate was 84 BPM. No episodes of tachycardia wer e noted. No episodes of bradycardia were noted. No pauses exceeding 2.0 seconds were noted. 1 ventricular ectopics, which represented < 1% of the total beat count, were noted. The highest vent ricular ectopic frequency occurred from 03:00 PM to 04:00 PM Wed. During this time 1 VE(s) occurred. Ventricular ectopics were observed as 1 isolated beat(s) only. No couplets or runs were noted. No supraventricular ectopics were noted. No episodes of ST depression (defined as -1.0 mm or mor e) were noted in channel 1. No episodes of ST depression (defined as -1.0 mm or more) were noted in channel 2. No episodes of ST depression (defined as -1.0 mm or more) were noted in channel 3. NO PATRICIO RY WAS RETURNED BY THE PATIENT TEST INTERPRETATION: Underlying rhythm appears to be a Sinus rhythm varying from 66-170 with an average of 84 bpm. There are no supraventricular arrhythmias noted and t here is a single premature ventricular beat seen. No runs were noted. No couplets and no triplets wer e noted. There were no blocked beats or no prolonged pauses. Signed by : Juanjose Pimentel
== END 2018-01-04 12:23 | disposition home or self-care (01) ==
LOC: PH3 21:31 → PHEDA 21:31 → PHED 21:31 → PH3 01-03 07:46
PROVIDERS: ADMIT Internal Medicine; ATTEND Internal Medicine